=== PATIENT | male | born 1950 | race Caucasian/White ===

== ENCOUNTER 2019-01-02 19:42 | Emergency (ER) | payer MEDICARE, OTHER ==
[~2019-01-02] VITALS: Ht 177.8 cm; Wt 109.3 kg
[2019-01-02 20:06] LABS: HEMATOCRIT 42 % (40-54); HEMOGLOBIN 13.5 G/DL (13.3-17.7); MEAN CORPUSCULAR HEMOGLOBIN 29 PG (25-34); MEAN CORPUSCULAR HGB CONC 32 G/DL (32-36); MEAN CORPUSCULAR VOLUME 89 FL (80-99); RED CELL DISTRIBUTION WIDTH 14.6 % (10.0-14.5); WHITE BLOOD COUNT 21.4 10^3/uL (4.3-11.0)
[2019-01-02 20:07] LABS: BASOPHILS # (AUTO) 0.1 10^3/uL (0.0-0.1); BASOPHILS % (AUTO) 0 % (0-10); EOSINOPHILS % (AUTO) 0 % (0-10); LYMPHOCYTES % (AUTO) 9 % (12-44); MEAN PLATELET VOLUME 11.5 FL (7.4-10.4); MONOCYTES # (AUTO) 1.6 X 10^3 (0.0-1.0); MONOCYTES % (AUTO) 7 % (0-12); NEUTROPHILS # (AUTO) 17.6 X 10^3 (1.8-7.8); NEUTROPHILS % (AUTO) 82 % (42-75); PLATELET COUNT 242 10^3/uL (130-400)
--- NOTE | 2019-01-02 20:12 | ED Fall/Injury ---
General Chief Complaint: Back Problems Nursing Triage Note: Patient was brought in via EMS due to falls X2. Patient states that he fell twice and was laying on the floor for about 30 minutes before a family member found him and called EMS. Patient is complaining of back and neck pain. Patient does have a history of back surgery. Patient is also diaphoretic. EMS checked his blood sugar and they stated that it was over 200. Patient denies being sick in the recent past. Source: patient Exam Limitations: no limitations History of Present Illness Date Seen by Provider: Jan 02, 2019 Time Seen by Provider: 19:45 Initial Comments The patient is a 68-year-old male who presents via EMS for evaluation of multi ple falls today. Apparently family went to check on the patient and he is lying on the ground as he could not help himself up. He states that during on of the falls he injured his back and neck. He states that he has had both back surgery and neck surgery in the past. He is noted to be diaphoretic and appears to have urinated on himself. He denies headache, vision changes, focal weakness or numbness, chest pain or shortness of breath, abdominal pain, nausea or vomiting, or syncope. Occurred: this afternoon Severity: moderate Injuries/Pain Location: neck, back Loss of Consciousness: no loss of consciousness Modifying Factors: Improves With Movement (makes it worse), Improves With Rest (makes it better) Associated Symptoms (Fall): Lightheadedness Allergies and Home Medications Allergies Coded Allergies: Penicillins (Verified Allergy, Unknown, 01/02/19) Sulfa (Sulfonamide Antibiotics) (Verified Allergy, Unknown, 01/02/19) Patient Home Medication List Home Medication List Reviewed: Yes Review of Systems Review of Systems Constitutional: diaphoresis Eyes: No Symptoms Reported Ears, Nose, Mouth, Throat: no symptoms reported Respiratory: no symptoms reported Cardiovascular: no symptoms reported Gastrointestinal: no symptoms reported Genitourinary: no symptoms reported Musculoskeletal: back pain, neck pain Skin: no symptoms reported Psychiatric/Neurological: No Symptoms Reported All Other Systems Reviewed Negative Unless Noted: Yes Past Wbaqdwg-Bzgspe-Punsys Hx Past Med/Social Hx: Reviewed Nursing Past Med/Soc Hx Patient Social History Recent Foreign Travel: No Contact w/Someone Who Travel: No Recent Infectious Disease Expo: No Physical Exam Vital Signs Vital Signs - First Documented 01/02/19 19:45 Temp 36.1 Pulse 90 Resp 26 B/P (MAP) 118/72 (87) Pulse Ox 98 O2 Delivery Room Air Capillary Refill : Less Than 3 Seconds Height, Weight, BMI Height: '" Weight: lbs. oz. kg; 34.00 BMI Method: General Appearance: WD/WN, no apparent distress, other (diaphoretic) HEENT: PERRL/EOMI, normal ENT inspection, pharynx normal Neck: supple, tender midline (C3-5) Cardiovascular: regular rate, rhythm, no edema, no JVD, systolic murmur (3/6) Respiratory: chest non-tender, lungs clear, normal breath sounds, no respiratory distress Gastrointestinal: normal bowel sounds, non tender, soft Back: normal inspection, no CVA tenderness, vertebral tenderness (L1-4 and T4- 7) Extremities: non-tender, no pedal edema, no calf tenderness Neurologic/Psychiatric: alert, normal mood/affect, oriented x 3 Andriy Coma Score Best Eye Response: (4) Open Spontaneously Best Verbal Response: (5) Oriented Best Motor Response: (6) Obeys Commands Progress/Results/Core Measures Results/Orders Lab Results Laboratory Tests Test 01/02/19 19:56 01/02/19 21:53 Range/Units White Blood Count 21.4 H 4.3-11.0 10^3/uL Red Blood Count 4.71 4.35-5.85 10^6/uL Hemoglobin 13.5 13.3-17.7 G/DL Hematocrit 42 40-54 % Mean Corpuscular Volume 89 80-99 FL Mean Corpuscular Hemoglobin 29 25-34 PG Mean Corpuscular Hemoglobin Concent 32 32-36 G/DL Red Cell Distribution Width 14.6 H 10.0-14.5 % Platelet Count 242 130-400 10^3/uL Mean Platelet Volume 11.5 H 7.4-10.4 FL Neutrophils (%) (Auto) 82 H 42-75 % Lymphocytes (%) (Auto) 9 L 12-44 % Monocytes (%) (Auto) 7 0-12 % Eosinophils (%) (Auto) 0 0-10 % Basophils (%) (Auto) 0 0-10 % Neutrophils # (Auto) 17.6 H 1.8-7.8 X 10^3 Lymphocytes # (Auto) 2.0 1.0-4.0 X 10^3 Monocytes # (Auto) 1.6 H 0.0-1.0 X 10^3 Eosinophils # (Auto) 0.0 0.0-0.3 10^3/uL Basophils # (Auto) 0.1 0.0-0.1 10^3/uL Neutrophils % (Manual) 85 % Lymphocytes % (Manual) 8 % Monocytes % (Manual) 5 % Eosinophils % (Manual) 0 % Basophils % (Manual) 0 % Band Neutrophils 2 % Blood Morphology Comment NORMAL Prothrombin Time 15.1 H 12.2-14.7 SEC INR Comment 1.1 0.8-1.4 Activated Partial Thromboplast Time 26 24-35 SEC Sodium Level 129 L 135-145 MMOL/L Potassium Level 6.2 H 3.6-5.0 MMOL/L Chloride Level 96 L 98-107 MMOL/L Carbon Dioxide Level 19 L 21-32 MMOL/L Anion Gap 14 5-14 MMOL/L Blood Urea Nitrogen 22 H 7-18 MG/DL Creatinine 1.30 0.60-1.30 MG/DL Estimat Glomerular Filtration Rate 55 BUN/Creatinine Ratio 17 Glucose Level 203 H 70-105 MG/DL Calcium Level 9.0 8.5-10.1 MG/DL Corrected Calcium 9.2 8.5-10.1 MG/DL Total Bilirubin 0.5 0.1-1.0 MG/DL Aspartate Amino Transf (AST/SGOT) 66 H 5-34 U/L Alanine Aminotransferase (ALT/SGPT) 49 0-55 U/L Alkaline Phosphatase 108 40-136 U/L Troponin I < 0.30 <0.30 NG/ML Pro-B-Type Natriuretic Peptide 318.1 H <75.0 PG/ML Total Protein 7.3 6.4-8.2 GM/DL Albumin 3.7 3.2-4.5 GM/DL Serum Alcohol < 10 <10 MG/DL Lactic Acid Level 3.39 *H 0.50-2.00 MMOL/L My Orders Orders - BERKLEY MONDRAGON DO Alcohol (01/02/19 19:53) Cbc With Automated Diff (01/02/19 19:53) Comprehensive Metabolic Panel (01/02/19 19:53) Ua Culture If Indicated (01/02/19 19:53) Ekg Tracing (01/02/19 19:53) Continuous Ekg Monitoring (01/02/19 19:53) Troponin I Fs (01/02/19 19:53) Probnp Fs (01/02/19 19:53) Ct Thoracic/Lumbar Spine Wo (01/02/19 19:56) Ct Head/Cervical Spine Wo (01/02/19 19:56) Manual Differential (01/02/19 19:56) Ns Iv 1000 Ml (Sodium Chloride 0.9%) (01/02/19 21:00) D50w (Emergency) Syringe (Dextrose 50% 5 (01/02/19 21:00) Insulin (Regular) Human (Humulin R (Per (01/02/19 21:00) Lactic Acid Analyzer (01/02/19 21:12) Morphine Injection (Morphine Injection (01/02/19 21:28) Cervical Collar: Apply (01/02/19 21:39) Partial Thromboplastin Time (01/02/19 21:59) Protime With Inr (01/02/19 21:59) Medications Given in ED Current Medications Medications Dose Ordered Sig/Mary Kate Route Start Time Stop Time Status Last Admin Dose Admin Dextrose 50 ml ONCE ONCE IV 01/02/19 21:00 01/02/19 21:01 DC 01/02/19 21:27 50 ML Insulin Human Regular 10 unit ONCE ONCE IV 01/02/19 21:00 01/02/19 21:01 DC 01/02/19 21:27 10 UNIT Vital Signs/I&O 01/02/19 19:45 Temp 36.1 Pulse 90 Resp 26 B/P (MAP) 118/72 (87) Pulse Ox 98 O2 Delivery Room Air Blood Pressure Mean: 87 POS Progress Progress Note : Progress Note @2124 - called by manufacturing test technician did notify of multiple fractures in the cervical and thoracic spine. The patient prefers to be transferred to [facility]. Awaiting the official radiology report and then transfer will be arranged. @2142 - Case d/w Jose J Boone, they will call back with ER doctor on line to tx ER-to-ER. @2214 - Dr. Borjas accepts the ER-to-ER transfer at this time. States to transfer pt immediately. @2229 - Pt hemodynamically stable and saturating well, chest tube not emergently needed and will cause delay. Pt to be evaluated by trauma team upon arrival in receiving ER. I did discuss the hemothorax with the pt and the need for chest tube placement but he does not want this done here. Comment @2002 - Normal sinus rhythm, rate of 91, left axis deviation is present, right bundle-branch block is present, no STEMI, reviewed and interpreted by myself Diagnostic Imaging Diagonstic Imaging: CT Comments [facility] POS [place], [place] POS NAME: [facility] REC#: [id number] PT STATUS: REG ER : 1950 PHYSICIAN: BERKLEY MONDRAGON DO ADMIT DATE: 01/02/19/ER FS Draft POSDate of Exam:01/02/19 CT THORACIC/LUMBAR SPINE WO PROCEDURE: CT thoracic and lumbar spine without contrast. TECHNIQUE: Multiple contiguous axial images were obtained through the thoracic and lumbar spine without the use of intravenous contrast. Sagittal and coronal reformations were then performed. DATE: January 02, 2019. INDICATION: 68-year-old male, fall. Back pain. COMPARISON: CT abdomen and pelvis July 04, 2018. FINDINGS: There is anterior cervical spine fusion hardware noted. This is extending to the superior margin of the field of view and has inferior extent at the level of C7. There is a significantly displaced fracture involving the anterior-inferior endplate of the T7 vertebral body. The C7 vertebral body is displaced from the small corner fracture fragment posteriorly by approximately 1.4 cm measured on sagittal image 30. There is no additional fracture involvement of the C7 vertebral body. The posterior elements of C7 are not involved by the fracture. There are displaced predominantly vertically oriented fractures involving the T8 and T9 vertebral bodies. There is anterior to posterior splaying of the T8 vertebral body fracture fragments by 7 mm as measured on sagittal image 32. There is anterior to posterior splaying of the T9 vertebral body fracture fragments by 2.8 mm. There is no identified fracture involvement of the posterior elements of T8 or T9. There is thoracolumbar spinal fusion hardware spanning from the level of T10-L5. The posterior spinal rods and fixation screws appear intact. There are fixation screws extending into the iliac bones. There is anterior spinal hardware extending into the L4 vertebral body. There is disc spacer material at L4-L5 and L5-S1 as well as at L3-L4. There is also intervertebral body hardware and additional fixation hardware at the level of L2-L3. There are flowing anterior syndesmophytes of the mid to lower thoracic spine without pronounced disc height loss. This could relate to diffuse idiopathic skeletal hyperostosis. There is a moderate to large right-sided hemothorax. There is abnormal soft tissue gas adjacent to the descending thoracic aorta on axial image 173 and adjacent sequential images. There is no identified sizable mediastinal hematoma. There is a very small hiatal hernia. There are multilevel laminectomy changes of the lumbar spine. There are bilateral sacroiliac degenerative changes. There is no identified acute fracture specifically involving the lumbar spine. There are inherent limitations of CT for evaluation of non-bony causes of pathology in the spinal canal. This is exacerbated by hardware-related artifact. IMPRESSION: 1. Significantly displaced fracture involving the anterior-inferior endplate of the C7 vertebral body with the primary C7 vertebral body being displaced posteriorly by approximately 1.4 cm. 2. Displaced vertically oriented fractures involving the T8 and T9 vertebral bodies with anterior to posterior splaying of fracture fragments as above. 3. No identified fracture involvement of the posterior elements. 4. No acute fracture specifically involving the lumbar spine. 5. Moderate to large right-sided hemothorax. 6. Abnormal soft tissue gas adjacent to the descending thoracic aorta. No identified sizable mediastinal hematoma. Findings called to Dr. Mondragon on January 02, 2019 at 2128 hours/cb Report faxed to Dr. Mondragon/cb. Dr. Tuttle's contact: [phone] Dictated on workstation # [id number] Dict: 01/02/192049 Trans: 01/02/192129 [facility] [id number] Interpreted by: WILLIAM TUTTLE MD Electronically signed by: Focused Exam Lactate Level 01/02/19 21:53: Lactic Acid Level 3.39*H Lactic Acid Level Laboratory Tests Test 01/02/19 21:53 Lactic Acid Level 3.39 MMOL/L (0.50-2.00) *H Departure Impression Primary Impression: C7 cervical fracture Additional Impressions: T8 vertebral fracture T9 vertebral fracture Acute hyperkalemia Dehydration Hemothorax, right Disposition: 02 XFER SHT-TRM HOSP Condition: Critical Transfer Transfer Reason: Exceeds level of care Time Spoke to Accepting Phy: 22:15 Transfer Progress Notes Case d/w Dr. Borjas (ER) accepts the ER-to-ER transfer and states to not obtain any additional imaging or cause any delays and to get the patient to them. Dr. Borjas aware of the hemothorax. Pt denies sob or chest pain at this time. EMS is already en route to our facility for the transfer. Dr. Reyna (neurosurgery) also on the line and accepts the consultation. Transfer Time: 22:35 Transfer Facility: [facility] Method of Transfer: EMS BERKLEY MONDRAGON DO Jan 02, 2019 20:12 POS
[2019-01-02 20:19] LABS: BAND NEUTROPHILS 2 %; BASOPHILS % (MANUAL) 0 %; EOSINOPHILS % (MANUAL) 0 %; LYMPHOCYTES % (MANUAL) 8 %; MONOCYTES % (MANUAL) 5 %; NEUTROPHILS % (MANUAL) 85 %; RBC MORPH NORMAL
[2019-01-02 20:34] LABS: ALANINE AMINOTRANSFERASE 49 U/L (0-55); ALKALINE PHOSPHATASE 108 U/L (40-136); BILIRUBIN,TOTAL 0.5 MG/DL (0.1-1.0); BUN/CREATININE RATIO 17; CARBON DIOXIDE 19 MMOL/L (21-32); CHLORIDE 96 MMOL/L (98-107); GFR ESTIMATED 55; GLUCOSE 203 MG/DL (70-105); POTASSIUM 6.2 MMOL/L (3.6-5.0); SODIUM 129 MMOL/L (135-145)
[2019-01-02 20:35] LABS: ALBUMIN 3.7 GM/DL (3.2-4.5); TOTAL PROTEIN 7.3 GM/DL (6.4-8.2)
[2019-01-02] MEDS ORDERED: DEXTROSE 50% 50 ML (IMS) SYR IV ONE (21:00)
[2019-01-02] MEDS ORDERED: inSUlin (REGULAR) HUMAN 1 UNIT/0.01 ML (CHARGE PER UNIT) IV ONE (21:00)
[2019-01-02] MEDS ORDERED: NS IV 1000 ML 1,000 ML IV SCH (21:00)
[2019-01-02] MEDS ORDERED: morphine INJ 10 MG/ML 1ML (SYR OR VIAL) IVP STA (21:28)
--- NOTE | 2019-01-02 21:31 | Diagnostic Imaging Report ---
PROCEDURE: CT thoracic and lumbar spine without contrast. TECHNIQUE: Multiple contiguous axial images were obtained through the thoracic and lumbar spine without the use of intravenous contrast. Sagittal and coronal reformations were then performed. DATE: January 02, 2019. INDICATION: 68-year-old male, fall. Back pain. COMPARISON: CT abdomen and pelvis July 04, 2018. FINDINGS: There is anterior cervical spine fusion hardware noted. This is extending to the superior margin of the field of view and has inferior extent at the level of C7. There is a significantly displaced fracture involving the anterior-inferior endplate of the T7 vertebral body. The C7 vertebral body is displaced from the small corner fracture fragment posteriorly by approximately 1.4 cm measured on sagittal image 30. There is no additional fracture involvement of the C7 vertebral body. The posterior elements of C7 are not involved by the fracture. There are displaced predominantly vertically oriented fractures involving the T8 and T9 vertebral bodies. There is anterior to posterior splaying of the T8 vertebral body fracture fragments by 7 mm as measured on sagittal image 32. There is anterior to posterior splaying of the T9 vertebral body fracture fragments by 2.8 mm. There is no identified fracture involvement of the posterior elements of T8 or T9. There is thoracolumbar spinal fusion hardware spanning from the level of T10-L5. The posterior spinal rods and fixation screws appear intact. There are fixation screws extending into the iliac bones. There is anterior spinal hardware extending into the L4 vertebral body. There is disc spacer material at L4-L5 and L5-S1 as well as at L3-L4. There is also intervertebral body hardware and additional fixation hardware at the level of L2-L3. There are flowing anterior syndesmophytes of the mid to lower thoracic spine without pronounced disc height loss. This could relate to diffuse idiopathic skeletal hyperostosis. There is a moderate to large right-sided hemothorax. There is abnormal soft tissue gas adjacent to the descending thoracic aorta on axial image 173 and adjacent sequential images. There is no identified sizable mediastinal hematoma. There is a very small hiatal hernia. There are multilevel laminectomy changes of the lumbar spine. There are bilateral sacroiliac degenerative changes. There is no identified acute fracture specifically involving the lumbar spine. There are inherent limitations of CT for evaluation of non-bony causes of pathology in the spinal canal. This is exacerbated by hardware-related artifact. IMPRESSION: 1. Significantly displaced fracture involving the anterior-inferior endplate of the C7 vertebral body with the primary C7 vertebral body being displaced posteriorly by approximately 1.4 cm. 2. Displaced vertically oriented fractures involving the T8 and T9 vertebral bodies with anterior to posterior splaying of fracture fragments as above. 3. No identified fracture involvement of the posterior elements. 4. No acute fracture specifically involving the lumbar spine. 5. Moderate to large right-sided hemothorax. 6. Abnormal soft tissue gas adjacent to the descending thoracic aorta. No identified sizable mediastinal hematoma. Findings called to Dr. Coffman on January 02, 2019 at 2128 hours/cb Report faxed to Dr. Coffman/jess. Dr. Larry's contact: [phone] Dictated by: Dictated on workstation # [id number]
--- NOTE | 2019-01-02 21:38 | NUR ---
C-Collar is applied
--- NOTE | 2019-01-02 21:50 | Diagnostic Imaging Report ---
PROCEDURE: CT head and CT cervical spine without contrast. TECHNIQUE: Multiple contiguous axial images were obtained through the brain and cervical spine without the use of intravenous contrast. Sagittal and coronal reformations through the cervical spine were then performed. Auto Exposure Controls were utilized during the CT exam to meet ALARA standards for radiation dose reduction. DATE: January 02, 2019. COMPARISON: None. INDICATION: 68-year-old male, fall. Head and neck pain. FINDINGS: There are polypoid lesions in the right and left maxillary sinus and right sphenoid sinus most likely relating to mucous retention cyst. There are areas of bubbly lucency nonspecific opacification in the left sphenoid sinus. Middle ears and mastoid air cells are well-aerated bilaterally. There is no identified skull fracture. There is mild generalized cerebral volume loss. There is no identified abnormal extra-axial fluid collection. There is no evidence of acute intracranial hemorrhage. There is no mass effect or midline shift. There is anterior cervical spinal fusion hardware spanning C2-C7. The hardware appears intact. There is no facet joint subluxation or dislocation. There are mild facet degenerative changes of the cervical spine. There are mild disc degenerative changes at C2-C3 and C7-T1. There is chondrocalcinosis adjacent to the C1-C2 articulation. CT is limited for assessment of disc pathology and additional non-bony causes of foraminal and spinal stenosis. There is no identified acute fracture of the cervical spine. There is a partially imaged right-sided hemothorax. There are bilateral carotid vascular calcifications. IMPRESSION: 1. No identified acute intracranial abnormality. 2. No identified acute post traumatic abnormality of the cervical spine. Dictated by: Dictated on workstation # [id number]
--- NOTE | 2019-01-02 22:21 | NUR ---
DESTINEE DECLINED FLIGHT DUE TO WEATHER AT 2213 MEDFLIGHT DECLINED DUE TO WEATHER 2218
[2019-01-02 22:22] LABS: INR 1.1 (0.8-1.4); PROTHROMBIN TIME PATIENT 15.1 SEC (12.2-14.7)
[2019-01-02] MEDS ORDERED: ONDANSETRON 4 MG/2 ML (SDV) Z0FRAN ONE (22:37)
[2019-01-02] MEDS ORDERED: fentaNYL INJECTION 100 MCG/2 ML AMP ONE (22:37)
[2019-01-02 22:45] VITALS: BP 123/77
[2019-01-02] MEDS ORDERED: ONDANSETRON 4 MG/2 ML (SDV) Z0FRAN IVP ONE (23:15)
[2019-01-02] MEDS ORDERED: fentaNYL INJECTION 100 MCG/2 ML AMP IVP ONE (23:15)
== END 2019-01-02 22:45 | disposition short-term general hospital (02) ==
LOC: ER FS 19:43 → EDBD 19:43 → ER FS 22:45
DX: S12.600A Unspecified displaced fracture of seventh cervical vertebra, initial encounter for closed fracture (principal); S27.1XXA Traumatic hemothorax, initial encounter; S22.069A Unspecified fracture of T7-T8 vertebra, initial encounter for closed fracture; S22.079A Unspecified fracture of T9-T10 vertebra, initial encounter for closed fracture; E87.5 Hyperkalemia; E86.0 Dehydration; Z88.2 Allergy status to sulfonamides; Z88.0 Allergy status to penicillin; W19.XXXA Unspecified fall, initial encounter
CPT/HCPCS: 36415; 70450; 72125; 72128; 72131; 80053; 80320; 83605; 83880; 84484; 85007; 85027; 85610; 85730; 93005; 96361; 96374; 96375